=== PATIENT | female | born 1995 | race Hispanic/Latino ===

== ENCOUNTER → 2021-09-06 10:39 | Outpatient (CLI) | payer OTHER, SELFPAY ==
--- NOTE | 2021-09-06 10:42 | DI.US.S_ITS ---
PROCEDURE: US OB >= 14 WEEKS FETUS INDICATIONS: anatomy screening OUTSIDE/PRIOR DATING DATA: Last menstrual period (LMP): 03/31/2021. LMP-based estimated date of delivery (REAL): 01/05/2022. Working REAL: 01/05/2022. TECHNIQUE: Real-time scanning was performed of the fetus, with image documentation and biometric measurements. COMPARISON: [facility], , OB >= 14 WEEKS FETUS, 08/26/2021, 14:05. FINDINGS: General: A single live intrauterine gestation is present. Presentation: Breech. Placenta: Placental position is posterior , without previa. Amniotic fluid index: 16.7 cm, normal range is 5-24 cm. Single deepest vertical pocket is 4.9 cm. heart rate: 131 beats per minute. Maternal cervical canal: 5.5 cm long. Normal lower limit is 2.5 cm. biometrics: Biparietal diameter: 4.7 cm equals 20 weeks 1 day Head circumference: 18.2 cm equals 21 weeks 3 days Abdominal circumference: 16.9 cm equals 21 weeks 6 days Femur length: 3.7 cm equals 21 weeks 4 days Clinically estimated gestational age: 22 weeks 5 days Composite gestational age from present scan: 21 weeks 2 days Estimated weight and percentile: 441 g, 7th percentile Anatomic survey: Neuro: Ventricles are non-dilated at less than 10 mm. Cisterna magna is normal at 3-11 mm. Cerebellum is normal in size and morphology. Face: Nose and lips, facial profile are normal. Spine: No evidence for spina bifida. Heart: 4-chambered heart is present, with normal ventricular outflow tracts. Diaphragm: Diaphragm is intact. Stomach: Left-sided stomach is present. Kidneys: No hydronephrosis. Normal is less than 5 mm in 2nd trimester, less than 7 mm in 3rd trimester. Cord: 3-vessel cord has orthotopic insertion. Bladder: Normal in size. Extremities: All 4 extremities identified. IMPRESSION: A single live intrauterine is seen. No significant discrepancy is found between the estimated gestational age based on these images and the estimated gestational age based upon the given date of the last menstrual period. However, the fetus is at the 7th percentile for estimated gestational weight. No anatomic abnormalities are identified. We strive to produce accurate, complete, and clear reports of imaging services. To assist us in improving patient care, this report was composed using standard report templates and voice recognition software. Therefore, it may contain abnormal punctuation, insertions and/or omissions. Occasional wrong-word or sound-alike substitutions may occur. Though we review the report and make efforts to correct it, we do recommend that the report be read carefully in proper context to recognize any text inaccuracies. Dictated by: Jason Rendon M.D. on 09/06/2021 at 15:13 Approved by: Jason Rendon M.D. on 09/06/2021 at 15:15
== END ==
PROVIDERS: PCP Family Medicine; Referring Provider Obstetrics & Gynecology; Visit Provider Obstetrics & Gynecology
DX: Z34.82 Encounter for supervision of other normal pregnancy, second trimester (principal); Z3A.21 21 weeks gestation of pregnancy
CPT/HCPCS: 76811

== ENCOUNTER → 2021-09-27 15:22 | Outpatient (CLI) | payer OTHER, SELFPAY ==
[2021-09-27 20:41] LABS: Urine N gonorrhoeae NOT DETECTED
[2021-09-27 20:44] LABS: Urine Chlamydia NOT DETECTED
== END ==
PROVIDERS: PCP Family Medicine; Visit Provider Obstetrics & Gynecology
DX: Z34.82 Encounter for supervision of other normal pregnancy, second trimester (principal); Z3A.25 25 weeks gestation of pregnancy
CPT/HCPCS: 87491; 87591

== ENCOUNTER → 2021-10-04 13:49 | Outpatient (CLI) | payer OTHER, SELFPAY ==
[2021-10-04 16:35] LABS: Hematocrit 33.4 % (36-46); Hemoglobin 11.6 g/dL (12.0-16.0)
[2021-10-05 08:42] LABS: GTT (PREG) 1 Hour PP 50gm Dose 119 mg/dL (76-139)
[2021-10-07 16:18] LABS: Hep C Virus Ab w/Reflex Quant NEGATIVE s/c (NEGATIVE)
== END ==
PROVIDERS: PCP Family Medicine; Referring Provider Obstetrics & Gynecology; Visit Provider Obstetrics & Gynecology
DX: Z34.82 Encounter for supervision of other normal pregnancy, second trimester (principal); Z3A.26 26 weeks gestation of pregnancy
CPT/HCPCS: 36415; 82950; 85014; 85018; 86803

== ENCOUNTER → 2021-12-13 11:57 | Outpatient (CLI) | payer OTHER, SELFPAY ==
[2021-12-14 11:32] LABS: Strep Grp B PCR NEG for Grp B Strep
== END ==
PROVIDERS: PCP Family Medicine; Visit Provider Obstetrics & Gynecology
DX: Z34.83 Encounter for supervision of other normal pregnancy, third trimester (principal); Z3A.36 36 weeks gestation of pregnancy
CPT/HCPCS: 87653

== ENCOUNTER 2022-01-02 05:45 | Inpatient (IN) | payer OTHER, SELFPAY ==
[2022-01-02] MEDS: LACTATED RINGERS 1,000 ML 100 ML IV ×2 (06:45→09:38)
[2022-01-02 06:47] VITALS: BP 113/68
[2022-01-02 06:54] LABS: Add Manual Diff / Slide Review NO; Basophils Absolute Auto 100 /uL (0-100); Basophils Percent Auto 1.4 % (0-2); Eosinophils Absolute Auto 100 /uL (0-450); Eosinophils Percent Auto 1.3 % (2-4); Hematocrit 31.9 % (36-46); Hemoglobin 10.8 g/dL (12.0-16.0); Lymphocytes Absolute Auto 1700 /uL (1100-4500); Lymphocytes Percent Auto 26.3 % (25-40); Mean Corpuscular HGB Conc 33.9 % (30-36); Mean Corpuscular Hemoglobin 31.9 PG (26-34); Mean Corpuscular Volume 94.2 fL (80-100); Monocytes Absolute Auto 500 /uL (0-900); Monocytes Percent Auto 7.6 % (3-14); Neutrophils Absolute Auto 4000 /uL (1500-7000); Neutrophils Percent Auto 63.4 % (50-75); Platelet Count 303 X10^3/uL (150-400); Red Blood Cell Count 3.39 X10^6/uL (4.0-5.2); Red Cell Distribution Width 15.4 % (11.6-14.8); White Blood Cell Count 6.3 X10^3/uL (4.5-11.0)
--- NOTE | 2022-01-02 07:11 | PM.OBHP.IH.1 ---
OB HPI Date/Time Date of admission: 01/02/22 Date Patient Seen: 01/02/22 History of Present Condition Chief complaint: Repeat C Section/Revision of Keloid REAL Calculator Estimated Delivery Date Method Current WG Current Estimate 01/05/22 LMP (Certain) 39w 4d Estimated Gestational Age (weeks): 39 : 2 Para: 1 Narrative: 26 yo female presents at 39 weeks for a scheduled repeat section. She has a history of a prior section and opted for repeat section for delivery. has been uncomplicated She denies any vaginal bleeding or leakage of fluid. care: good care Dating criteria OB: LMP confirmed by 1st trimester US Obstetrical complications: none Medical complications OB: none Preadmission Labs Last OB Lab Results: Blood Type Pending 01/02/22 06:20 Antibody Screen Pending 01/02/22 06:20 Hematocrit 31.9 % (36-46) L 01/02/22 06:20 Hemoglobin 10.8 g/dL (12.0-16.0) L 01/02/22 06:20 Hepatitis C Antibody Negative s/c (NEGATIVE) 10/04/21 14:57 Glucose 1 Hour 119 mg/dL (76-139) 10/04/21 14:57 Group B Streptococcus (PCR) Neg for grp b strep 12/13/21 11:57 Prior (ies) Past Pregnancies Del. Date GA/Weeks Labor Lgth Wt Sex Route Outcome Anesthesia Place Delv Breastfeed Preg Comp Name 06/12/20 41 8 7 lb 11 oz Female live - full term [facility] Still nursing as of 08/18/21 none Audra Delivery Date: 06/12/20 Last Updated by: Crystal Menezes RN C/S for intolerance of labor, cord compression Evaluation Evaluation Baseline heart rate: 130 Variability: Average (6-10) monitor accelerations: Present Monitor Decelerations: Absent Category of Tracing: Reactive Comments: occasional contraction noted PFSH Medical History Anxiety (~2018) Liver lesion Surgical History Anesthesia Previous section (~06/12/20) Family History Mother Hypertension Grandmother Diabetes mellitus Grandfather Liver disease Social History marital status: number of children: 1 household members: spouse and children lives independently: Yes housing: house pets and animals: Yes (3 dogs) education level: college (Associate's degree) occupational status: unemployed current occupational exposures/hazards: No special lizzy needs: No seatbelt use: always water heater temp set < 120 deg: No (Will adjust) working smoke detector in home: Yes fire extinguisher in home: Yes carbon monox detector in home: Yes firearms in home: Yes firearms unloaded and locked: Yes do you feel safe at home: Yes Smoking Status: Never smoker second hand exposure: No alcohol intake: former substance use type: does not use during the past year weight has: remained stable well-balanced diet: daily or most days daily servings fruits/ve-4 caffeine: Yes Type(s) of exercise: walking frequency: 3-4 times per week duration: 15-30 minutes/day Meds Home Medications and Allergies Home Medications Medication Instructions Recorded Confirmed Type prenat.vits,yarelis,[id number]-[id number] 1 tab PO DAILY 08/18/21 01/02/22 History double electric breast pump 1 ea topical .prn #1 ea 12/09/21 12/27/21 Rx Allergies Allergy/AdvReac Type Severity Reaction Status Date / Time No Known Allergies Allergy Verified 01/02/22 06:46 OB Exam HENMT Head: normal to inspection Resp Effort & Inspection: normal respiratory effort and able to speak in complete sentences Cardio Rate: regular rate Extremities Lower extremity: Yes normal to inspection Objective Labs Result Diagrams: 01/02/22 06:20 Labs: Laboratory Results - last 24 hr 01/02/22 06:20 WBC 6.3 RBC 3.39 L Hgb 10.8 L Hct 31.9 L MCV 94.2 MCH 31.9 MCHC 33.9 RDW 15.4 H Plt Count 303 Neut % (Auto) 63.4 Lymph % (Auto) 26.3 [place] % (Auto) 7.6 Eos % (Auto) 1.3 L Baso % (Auto) 1.4 Neut # (Auto) 4000 Lymph # (Auto) 1700 [place] # (Auto) 500 Eos # (Auto) 100 Baso # (Auto) 100 Assessment and Plan Assessment and Plan Assessment and Plan narrative: 39 week , prior C section,jacobo for scheduled repeat section for delivery She had been scheduled with Dr. Perez who called patient last night and patient agreed with my substituting as Dr. Perez is ill. Consent already signed in the office. I reviewed the procedure, repeat section and revision of prior scar. I reviewed the risk of the procedure including bleeding, infection, injury to adjacent organs including bowel and bladder as well as risk of injury to the baby. Verbal and written consent obtained.
[2022-01-02 07:28] LABS: COVID19 -Nasal RAPID Negative (Negative)
[2022-01-02] MEDS: CITRIC ACID/SODIUM CITRATE 15 ML SOLUTION 30 ML PO (07:29)
--- NOTE | 2022-01-02 07:34 | SUR.OPER ---
Supine on Padded OR bed, head on pillow, safety belt at thigh, arms secured on padded arm boards at <90 degrees abduction. Bump under right buttock. Legs uncrossed with pillow under knees, gel pad to heels, tape over blanket to lower legs.
[2022-01-02] MEDS: CEFAZOLIN 2 GM/100 ML PREMIX 100 ML IV (08:15)
[2022-01-02] MEDS: TRIAMCINOLONE 40 MG/ML VIAL INTRA-ARTI (08:33)
--- NOTE | 2022-01-02 08:47 | SUR.OPER ---
Viable male delivered via section at 08:42. Cord blood vials x2 and placenta sent with L&D RN.
[2022-01-02 10:00] VITALS: BP 98/62; PULSE 73; RESP 18; TEMP 35.9; O2SAT 99
[2022-01-02 10:05] VITALS: BP 100/67; PULSE 68; RESP 17; O2SAT 99
[2022-01-02 10:10] VITALS: BP 99/54; PULSE 70; RESP 21; O2SAT 99
[2022-01-02 10:15] VITALS: BP 102/53; PULSE 73; RESP 20; TEMP 36; O2SAT 100
[2022-01-02 10:20] VITALS: BP 105/68; PULSE 72; RESP 16; O2SAT 99
[2022-01-02] MEDS: ACETAMINOPHEN 325 MG TABLET 650 MG PO ×2 (10:59→22:00)
[2022-01-02] MEDS: OXYCODONE IR 5 MG TABLET PO (11:01)
--- NOTE | 2022-01-02 12:36 | PT-IP ANOTE ---
Received PT orders. Confirmed with Center that orders were entered in error. Will complete the order.
--- NOTE | 2022-01-02 12:36 | OT.IPNOTE ---
Ot eval and treat order received. P.T. talked with nursing and order was an error. Will discharge order.
--- NOTE | 2022-01-02 14:46 | P.OP_ITS ---
Operative Date/Time/Diagnoses Date of procedure: 01/02/22 Time of procedure: 08:30 Pre-op diagnosis: 39 week , history of prior section, desires repeat section for delivery Post-op diagnosis: same Procedure & Clinicians Procedure: Repeat section with scar revision Same procedure as scheduled: Yes Indications: 26-year-old female at 39 weeks. She has a history of prior section and after review of options, desire proceeding with repeat section for delivery. She has a wider scar at her incision, and scar revision was offered, she desired scar revision at the time of her . Surgeon: Radha Christopher Optometric Technologist: Veronica Butt Click Yes if Unassisted: No Anesthesia Type: Spinal Operative Notes Findings: A vigorous baby boy weighing 7 lb 4 oz with Apgars of 9 and 9 was delivered. Clear amniotic fluid noted at delivery. Maternal uterus and bilateral tubes and ovaries were normal in appearance. Closure Type: primary Specimen(s): other (cord blood to lab) Applied: catheter (Vargas) Estimated Blood Loss (mL): 500 Blood products transfused: none Procedure in detail: She was transferred from the center to the operating room. Spinal anesthesia was placed by the anesthesiologist. She was placed in the supine position. FHR auscultated, was normal after the spinal anesthesia. Vargas catheter was placed and she was prepped and draped in routine sterile fashion. . Time-out was taken and the patient procedure was identified. Anesthesia level was tested and was adequate. Her prior scar was noted. The scar was wide with excess scar tissue in the middle 2/3 of her old incision. An elliptical incision was made around her prior scar. Using Allis clamps the skin in the area of the old scar was elevated and the skin and adjacent minimal subcutaneous tissue was excised and then handed off. The incision was then carried down to the level of the fascia. The fascia was incised in the midline and was extended transversely. The superior and inferior edges of the fascia were elevated and dissected off the rectus muscles with sharp, bovie and blunt dissection. The muscles were scarred in the midline. The area of scar tissue was elevated with hemostats and excised. The muscles were then with sharp dissection of the scar tissue in the midline. The parietal peritoneum was elevated, incised and extended bluntly. The bladder blade was placed. The visceral peritoneum was elevated off the lower uterus, incised and the bladder flap was bluntly created. The bladder blade retractor was placed to protect the bladder. A transverse incision was made in the lower uterus down to the level of the membranes. The membranes were ruptured for clear fluid. The uterine the incision was extended transversely with blunt dissection. The head was elevated to the uterine incision and delivered through the incision with some mild fundal pressure. Anterior and posterior shoulders followed by the body were delivered without difficulty. The boy cried spontaneously and was vigorous and was shown to the parents. Delayed cord clamping was done with cord clamped and cut 1 minute after . The was handed off to respiratory therapy who was present for delivery. Cord blood was obtained a specimen. The placenta was expressed with cord traction and massage. It appeared intact with a normal three-vessel cord. The uterus was swept clean of adherent clots and membranes. The uterus was brought through the abdominal incision and closed in 2 layers with 0 Vicryl, the 1st layer being in running locking continuous fashion and the 2nd layer being in a vertical imbricating type fashion. There was some persistent bleeding along the right side of the incision which was controlled with 2 [id number] sutures of 0 Vicryl. Hemostasis was noted. The tubes and ovaries were inspected and noted to be normal. Posterior to the uterus was suctioned of some fluid and blood. The uterus was placed back into the maternal abdomen. The paracolic gutters were inspected and wiped of some minimal blood and fluid. The anterior cul-de-sac was inspected and some clot was removed. The uterine incision was re- inspected and good hemostasis was noted. The pelvis was irrigated. Repeat inspection now showed some bleeding from the uterine surface, away from, inferior to the incision by a few cm. There appeared to be some denuded serosa in this area. Bleeding ceased after placement of 2 interrupted sutures of #2 Vicryl. Hemostasis throughout the pelvis then remained. The abdomen was closed. The parietal peritoneum was reapproximated with running suture of 2. Vicryl. The fascia was closed with running continuous suture of 0 Vicryl. The subcutaneous tissue was reapproximated by reapproximating Kim's fascia with 2-0 Vicryl. The skin edges were injected with diluted Kenalog. The skin was closed with a subcuticular suture of 4 0 Monocryl. Steri-Strips wth Mastisol and sterile Aquacel dressing was placed. She tolerated the procedure well and went to the recovery room in stable condition Complications: none Post-operative Condition: stable Disposition: PACU Plan for aftercare: Transferred to the birthing center for routine postoperative / care
[2022-01-02] MEDS: KETOROLAC 30 MG/ML VIAL IV (22:00)
[2022-01-03] MEDS: ACETAMINOPHEN 325 MG TABLET 650 MG PO ×3 (03:56→15:55)
[2022-01-03] MEDS: KETOROLAC 30 MG/ML VIAL IV (03:57)
[2022-01-03 09:08] LABS: Add Manual Diff / Slide Review NO; Basophils Absolute Auto 0 /uL (0-100); Basophils Percent Auto 0.3 % (0-2); Eosinophils Absolute Auto 100 /uL (0-450); Eosinophils Percent Auto 0.7 % (2-4); Hematocrit 26.3 % (36-46); Hemoglobin 8.8 g/dL (12.0-16.0); Lymphocytes Absolute Auto 1100 /uL (1100-4500); Lymphocytes Percent Auto 12.3 % (25-40); Mean Corpuscular HGB Conc 33.5 % (30-36); Mean Corpuscular Hemoglobin 31.9 PG (26-34); Mean Corpuscular Volume 95.3 fL (80-100); Monocytes Absolute Auto 700 /uL (0-900); Monocytes Percent Auto 7.5 % (3-14); Neutrophils Absolute Auto 7000 /uL (1500-7000); Neutrophils Percent Auto 79.2 % (50-75); Platelet Count 230 X10^3/uL (150-400); Red Blood Cell Count 2.76 X10^6/uL (4.0-5.2); Red Cell Distribution Width 15.2 % (11.6-14.8); White Blood Cell Count 8.9 X10^3/uL (4.5-11.0)
[2022-01-03] MEDS: DOCUSATE 100 MG CAPSULE 200 MG PO (10:05)
[2022-01-03 10:14] VITALS: TEMP 36.6
[2022-01-03 11:17] VITALS: TEMP 36.4
[2022-01-03] MEDS: IBUPROFEN 600 MG TABLET PO (11:17)
--- NOTE | 2022-01-03 12:12 | PM.OBPN.1 ---
Subjective - OB Subjective Date Patient Seen: 01/03/22 Exam Vital Signs (past 8 hours): - 01/03/22 10:14 01/03/22 11:17 Temperature 97.8 F 97.5 F L Oxygen Delivery Method Room Air Narrative Exam Narrative: Vital signs: Temp 97.6F, BP 89/55, Pulse 78 RR 16 Objective Labs Result Diagrams: 01/03/22 08:07 Labs: Laboratory Results - last 24 hr 01/03/22 08:07 WBC 8.9 RBC 2.76 L Hgb 8.8 L Hct 26.3 L MCV 95.3 MCH 31.9 MCHC 33.5 RDW 15.2 H Plt Count 230 Neut % (Auto) 79.2 H Lymph % (Auto) 12.3 L [place] % (Auto) 7.5 Eos % (Auto) 0.7 L Baso % (Auto) 0.3 Neut # (Auto) 7000 Lymph # (Auto) 1100 [place] # (Auto) 700 Eos # (Auto) 100 Baso # (Auto) 0 Assessment & Plan Time Spent With Patient Time: Total time spent is greater than 50% in coordination of care (as documented) at patient's floor/unit and/or counseling patient:
[2022-01-03 13:25] VITALS: TEMP 36.4
[2022-01-03] MEDS: OXYCODONE IR 5 MG TABLET PO (13:25)
--- NOTE | 2022-01-03 13:28 | P.DS_ITS ---
Discharge Providers Provider Date of admission: 01/02/22 05:45 Discharge Date: 01/03/22 Primary care physician: Janene Petitt DO Consults: 01/02/22 09:29 Consult to Occupational Therapy Evaluate & Treat Comment: Physician Instructions: Evaluate and treat Consult to Physical Therapy Evaluate & Treat Comment: Physician Instructions: Evaluate and Treat 01/02/22 10:55 Consult to Traffic Representative Routine Comment: Discharge provider: Radha Christopher MD Summary Hospital Course Date Patient Seen: 01/03/22 Time Patient Seen: 12:30 Diagnoses: Term , delivered Status post repeat section Hospital Course: This 26-year-old female was admitted at 39 weeks for a scheduled repeat section. Her was uncomplicated. She had some increase scar tissue along her prior section incision desires scar revision with the . She was admitted underwent repeat lower transverse section with skin scar incision revision, without complications. She has had a normal postoperati ve course. Today she reports that she is feeling well, denies any problems. She has only been using Tylenol and ibuprofen for incisional discomfort but does want some oxycodone for the ride home and to have in case she has increased incisional discomfort. She reports light lochia. She is ambulating without problems. She is voiding without difficulty. She had normal GI return, tolerating regular diet and is passing flatus. She has remained afebrile. Her blood pressure is normal. The baby is doing well. He is without problems. The baby is ready for discharge and the patient desires discharge home today as well. She is okay for discharge and will be discharged home in good condition. I recommended continuing her [id number] iron prescription that she was taking for anemia , due to drop in blood count after the as well. Follow-up appointment scheduled for 1 week for incisional dressing removal. Peripartum Data Infant Delivery Method: Section complications: none [place] 1: Gender: Male Disposition of : home Discharge Diagnosis (1) Previous section complicating : Start Date: 01/03/22 Start Time: 13:34 Status: Acute (2) Keloid scar: Start Date: 01/03/22 Start Time: 13:34 Status: Acute Status at Discharge Cognitive/behavioral status at discharge: oriented and at baseline, oriented Functional status at discharge: independent ambulation Overall status at discharge: patient is progressing back to baseline Time Spent with Patient Time attestation: Total time spent providing and/or coordinating discharge services: Time spent: Less than 30 minutes Objective Labs Result Diagrams: 01/03/22 08:07 Labs: Laboratory Results - last 24 hr 01/03/22 08:07 WBC 8.9 RBC 2.76 L Hgb 8.8 L Hct 26.3 L MCV 95.3 MCH 31.9 MCHC 33.5 RDW 15.2 H Plt Count 230 Neut % (Auto) 79.2 H Lymph % (Auto) 12.3 L [place] % (Auto) 7.5 Eos % (Auto) 0.7 L Baso % (Auto) 0.3 Neut # (Auto) 7000 Lymph # (Auto) 1100 [place] # (Auto) 700 Eos # (Auto) 100 Baso # (Auto) 0 Exam Vital Signs (past 8 hours): - 01/03/22 10:14 01/03/22 11:17 Temperature 97.8 F 97.5 F L Oxygen Delivery Method Room Air BP 89/58, pulse 78, respiratory rate 16 Narrative Exam Narrative: General: ?Well-appearing female Lungs: Normal respiratory effort. Speaks in complete sentences without difficulty. Abdomen: ?Soft, expected ami-incisional tenderness, otherwise nontender, nondistended. ?Fundus U-1, firm, nontender Extremities: ?Trace pedal edema Discharge Plan Discharge Plan Patient Disposition: Home Provider Discharge Comment: , postoperative, status post repeat section Discharge orders & Medications Prescriptions: New acetaminophen 325 mg Tablet 650 mg PO Q6H PRN (Reason: Fever/Mild Pain (1-3)) Qty: 1 0RF docusate sodium 100 mg Capsule 200 mg PO DAILY Qty: 14 0RF ibuprofen 600 mg Tablet 600 mg PO Q6HR PRN (Reason: Fever/Mild Pain (1-3)) Qty: 60 0RF oxycodone 5 mg Tablet See Rx Instructions .ROUTE .COMPLEX PRN (Reason: Pain, Moderate (4-6)) Qty: 14 0RF Rx Instructions: 1-2 tablets every 4-6 hours as needed for pain Continued double electric breast pump 1 ea topical .prn Qty: 1 0RF Rx Instructions: With supplies prenat.vits,yarelis,[id number] Tablet 1 tab PO DAILY Follow up/Referrals: Tiff Perez MD [Physician] - (Incision check w/ Dr. Perez's nurse: Jan.10 @ 1:30pm, 1:15 check in. If you have any questions/concerns or need to reschedule please call .) Discharge Health Status Multidrug resistant organism: No MDRO Diet/Activity/Treatments Diet: Regular Skin/Wound/Dressing Care Report to your healthcare provider any signs of infection, such as:: chills, fever, increased pain, unusual drainage and unusual redness Dressing: Leave incisional dressing on, it will be removed in the office in 1 week. May shower with the dressing in place. Visit Report/Discharge Packet Instructions: DI for , DI for and Nipple Soreness Stand Alone Forms: Discharge: Care Discharge Data Primary Care Provider: Janene Pettit
[2022-01-03 15:55] VITALS: TEMP 36.4
[2022-01-03 16:20] VITALS: BP 105/68; PULSE 72; RESP 16; TEMP 36.4
== END 2022-01-03 16:21 | disposition home or self-care (01) | DRG 788 ==
PROVIDERS: Obstetrics & Gynecology; Admitting Provider Obstetrics & Gynecology; PCP Family Medicine; Referring Provider Obstetrics & Gynecology; Visit Provider Obstetrics & Gynecology
PROC: 10D00Z1 Extraction of Products of Conception, Low, Open Approach (ICD-10-PCS; CPT 59514; principal; 2022-01-02 07:45)
DX: O34.211 Maternal care for low transverse scar from previous cesarean delivery (principal); Z3A.39 39 weeks gestation of pregnancy; Z37.0 Single live birth; O99.892 Other specified diseases and conditions complicating childbirth; L91.0 Hypertrophic scar; Z20.822 Contact with and (suspected) exposure to COVID-19
CPT/HCPCS: 36415; 59050; 59514; 59515; 85025; 86850; 86900; 86901; 87635; C9803; J0690; J1885; J2274; J2405; J2590; J3010